=== PATIENT | female | born 1995 | race Caucasian/White ===

== ENCOUNTER 2016-08-29 20:43 | Emergency (ER) | payer OTHER ==
[~2016-08-29] VITALS: Ht 175.3 cm; Wt 56.7 kg
[2016-08-29] MEDS ORDERED: MEDR150D9 IM (20:57)
[2016-08-29] MEDS ORDERED: IV NORMAL SALINE 1000 ML BAG IV ONE (21:45)
[2016-08-29 21:49] LABS: BASOPHILS # (AUTO) 0.1 K/uL (0.0-8.0); BASOPHILS % (AUTO) 0.8 % (0.0-2.0); EOSINOPHILS # (AUTO) 0.1 K/uL (0.0-0.7); HEMATOCRIT 41.6 % (37-47); HEMOGLOBIN 13.9 G/DL (12.0-16.0); LYMPHOCYTES # (AUTO) 1.9 K/UL (0.8-4.8); LYMPHOCYTES % (AUTO) 25.6 % (20.5-74.5); MEAN CORPUSCULAR HEMOGLOBIN 29.8 UUG (27.0-31.0); MEAN CORPUSCULAR HGB CONC 33 g/dL (32.0-37.0); MONOCYTES # (AUTO) 0.7 K/UL (0.1-1.30); MONOCYTES % (AUTO) 9.3 % (0-11); NEUTROPHILS # (AUTO) 4.8 K/UL (1.8-8.9); NEUTROPHILS % (AUTO) 63.3 % (31.5-64.5); PLATELET COUNT (AUTO) 249 K/UL (150-450); RED BLOOD CELL COUNT(AUTO) 4.67 MIL/UL (4.2-5.4); WHITE BLOOD COUNT (AUTO) 7.6 K/UL (4.0-11.2)
[2016-08-29 21:57] LABS: CREATININE 1.1 mg/dL (0.6-1.3); POTASSIUM 3.6 mmol/L (3.5-5.1)
[2016-08-29] MEDS ORDERED: ONDANSETRON IV *ER 4 MG/2 ML VIAL IV ONE (22:00)
[2016-08-29] MEDS ORDERED: MORPHINE SULFATE 4 MG/1 ML DISP.SYRIN IV ONE (22:00)
[2016-08-29 22:03] LABS: BILIRUBIN,DIRECT 0.2 mg/dL (0.0-0.2); BILIRUBIN,TOTAL 0.6 mg/dL (0.2-1.0); TOTAL PROTEIN, SERUM 8.6 g/dL (6.4-8.2)
--- NOTE | 2016-08-29 22:11 | NUR ---
Pt to room, changed into gown and placed on monitor. Pt c/o cont. vag bleed s/p cervical biopsy last week. Pt sts she is using a pad/hr. Pt also c/o increased pain. Pt seen by MD. Orthostatic VS obtained and shown to MD. IV established. Labs drawn and sent. Pt medicated for discomfort, will monitor for effects of medication. Fluid bolus infusing freely to gravity. Pt resting in position of comfort for self
[2016-08-29] MEDS ORDERED: MORPHINE SULFATE 4 MG/1 ML DISP.SYRIN ONE (22:17)
[2016-08-29] MEDS ORDERED: ONDANSETRON 4 MG/2 ML VIAL ONE (22:17)
--- NOTE | 2016-08-29 22:45 | NUR ---
Fluid bolus completed. Pt sts pain improved. Sts pain is 1/10. Pt resting in position of comfort
[2016-08-30] MEDS ORDERED: MORPHINE SULFATE 4 MG/1 ML DISP.SYRIN IV ONE (00:15)
[2016-08-30] MEDS ORDERED: ONDANSETRON IV *ER 4 MG/2 ML VIAL IV ONE (00:15)
--- NOTE | 2016-08-30 00:15 | NUR ---
Pt c/o increased pain. MD notified and pt medicated. Pt sts she is feeling better. Pt stable for discharge per MD. IV dc'd, catheter intact. Drsg applied. No problems noted to site. Pt given ACI. Pt verbalized understanding of dc instructions. Pt ambulated out of er with steady gait and ride home.
[2016-08-30] MEDS ORDERED: MORPHINE SULFATE 4 MG/1 ML DISP.SYRIN ONE (00:17)
[2016-08-30] MEDS ORDERED: ONDANSETRON 4 MG/2 ML VIAL ONE (00:17)
[2016-08-30 00:37] VITALS: BP 120/70
== END 2016-08-30 00:38 | disposition home or self-care (01) ==
LOC: ER 20:44
DX: N92.0 Excessive and frequent menstruation with regular cycle (principal); C53.9 Malignant neoplasm of cervix uteri, unspecified
CPT/HCPCS: 36415; 76856; 84703; 85025; 85730; 86850; 86900; 86901; A4663; J2270; J2405; J7030